=== PATIENT | male | born 1965 | race African-American/Black ===

== ENCOUNTER 2020-06-01 09:43 | Emergency (ER) | payer OTHER ==
[2020-06-01 09:50] VITALS: BP 160/95; PULSE 59; TEMP 98.1; BMI 27.7
[2020-06-01] MEDS ORDERED: DIPHTH,PERTUSS(ACELL),TET 0.5 ML DISP.SYRIN IM ONE ×2 (10:46→11:08)
== END 2020-06-01 11:23 | disposition home or self-care (01) ==
LOC: JERFT 09:43
PROC: 3E0234Z Introduction of Serum, Toxoid and Vaccine into Muscle, Percutaneous Approach (ICD-10-PCS; principal; 2020-06-01)
DX: S61.213A Laceration without foreign body of left middle finger without damage to nail, initial encounter (principal)
CPT/HCPCS: 90715; 99284-25